=== PATIENT | male | born 1975 | race Caucasian/White ===

== ENCOUNTER 2018-12-16 01:48 | Emergency (ER) | payer OTHER ==
[~2018-12-16] VITALS: Ht 182.9 cm; Wt 90.7 kg
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
[2018-12-16 02:05] VITALS: BP 141/84
[2018-12-16] MEDS ORDERED: Bacitracin Oint UD TOPIC ONE ×2 (02:19→02:30)
[2018-12-16 02:20] VITALS: BP 141/84
--- NOTE | 2018-12-16 02:20 | NUR ---
ED Nurse Note: pt cleared to be d/c per ERMD, pt discharge and aftercare instruction provided, pt advised to follow up with pcp or return to ed if changes in condition, pt education done via discussion and handout, pt verbalized understanding and agrees with plan, vss, ambulatory w/steady gait, sutures intact and dressing applied, left accompanied by family and friends.
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
== END 2018-12-16 02:20 | disposition home or self-care (01) ==
LOC: EMR 02:04
DX: S01.81XA Laceration without foreign body of other part of head, initial encounter (principal); W05.2XXA Fall from non-moving motorized mobility scooter, initial encounter; Y92.9 Unspecified place or not applicable
CPT/HCPCS: 99282